=== PATIENT | male | born 1985 | race Two or more races ===

== ENCOUNTER 2023-05-05 13:56 | Emergency (ER) | payer MEDICAID, OTHER ==
[~2023-05-05] VITALS: Ht 193 cm; Wt 154.7 kg
[~2023-05-05 13:56] MED LIST: IBUP-1456 PO; METH-1182 PO
[2023-05-05 14:30] LABS: Basophils # (auto) 0 10 ^3/uL (0-0.2); Basophils % (auto) 0.4 % (0.0-2.0); Eosinophils # (auto) 0.1 10 ^3/uL (0-0.8); Eosinophils % (auto) 1.2 % (0.0-7.0); Hematocrit 50.1 % (41.0-53.0); Hemoglobin 17.1 g/dL (13.5-17.5); Lymphocytes # (auto) 1.8 10 ^3/uL (0.4-5.4); Lymphocytes % (auto) 25.8 % (10.0-50.0); Mean Corpuscular Hemoglobin 30.3 pg (28.0-32.0); Mean Corpuscular Volume 89.2 fL (80.0-100.0); Monocytes # (auto) 0.5 10 ^3/uL (0-1.3); Monocytes % (auto) 7.5 % (0.0-12.0); Neutrophils # (auto) 4.5 10 ^3/uL (1.6-8.6); Neutrophils % (auto) 65.1 % (37.0-80.0); Nucleated Red Blood Cells % 0.2 %; Red Blood Cells 5.62 10^6/uL (4.5-5.90); Red Cell Distribution Width 13.8 % (11.8-14.3); White Blood Cell 6.9 10^3/uL (4.4-10.8)
[2023-05-05 14:45] LABS: Alanine Aminotransferase 80 U/L (7-40); Albumin 4.8 g/dL (3.2-4.8); Alkaline Phosphatase 78 U/L (46-116); Anion Gap 8 (5-15); Aspartate Aminotransferase 56 U/L (13-40); BUN/Creatinine Ratio 15.8 (10.0-20.0); Bilirubin, Total 2.5 mg/dL (0.2-1.0); Blood Urea Nitrogen 12 mg/dL (9-23); Calcium 9.5 mg/dL (8.7-10.4); Carbon Dioxide 27 mmol/L (20-30); Chloride 103 mmol/L (98-107); Glucose 276 mg/dL (74-106); Lipase 44 U/L (12-53); Sodium 138 mmol/L (136-145); Total Protein 7.6 g/dL (5.7-8.2)
[2023-05-05 16:49] LABS: Urine Bacteria FEW /hpf (None Seen); Urine Blood Negative /uL (Negative); Urine Clarity Clear (Clear); Urine Color Yellow (Yellow); Urine Mucus FEW (None Seen); Urine Protein, UAD 1+ (Negative); Urine Specific Gravity 1.048 (1.001-1.035); Urine Sperm PRESENT /hpf (None Seen); Urine WBC 2 /hpf (0 - 3); Urine pH 5.5 (5.0-8.0)
[2023-05-05] MEDS ORDERED: PANT40TA2 PO (17:28)
[2023-05-05] MEDS ORDERED: ZOFR4T PO (17:28)
[2023-05-05] MEDS: LORazepam 0.5 MG TAB PO ONE (17:53)
[2023-05-05 17:59] VITALS: BP 122/78; PULSE 87; RESP 18; TEMP 98.6; O2SAT 95
== END 2023-05-05 18:00 | disposition home or self-care (01) ==
LOC: ER 13:56
DX: R74.8 Abnormal levels of other serum enzymes (principal); E80.6 Other disorders of bilirubin metabolism; Z90.49 Acquired absence of other specified parts of digestive tract
CPT/HCPCS: 36415; 74176; 80053; 81001; 83690; 85025

== ENCOUNTER 2023-06-09 08:16 | Emergency (ER) | payer MEDICAID, OTHER ==
[~2023-06-09] VITALS: Ht 193 cm; Wt 148.8 kg
[~2023-06-09 08:16] MED LIST changes: +PANT40TA2 PO; +ZOFR4T PO
[2023-06-09 08:35] VITALS: BP 135/60; PULSE 65; RESP 18; TEMP 97.9; O2SAT 99
[2023-06-09] MEDS ORDERED: CYCL-837 PO (09:05)
[2023-06-09] MEDS ORDERED: IBUP-1456 PO (09:05)
[2023-06-09] MEDS: HYDROcodone-ACET 5/325MG TAB PO ONE (09:10)
== END 2023-06-09 09:35 | disposition home or self-care (01) ==
LOC: ER 08:16
DX: S29.012A Strain of muscle and tendon of back wall of thorax, initial encounter (principal); R51.9 Headache, unspecified; M54.2 Cervicalgia; Z90.49 Acquired absence of other specified parts of digestive tract; V43.52XA Car driver injured in collision with other type car in traffic accident, initial encounter; Y93.89 Activity, other specified; Y92.488 Other paved roadways as the place of occurrence of the external cause; Y99.8 Other external cause status

== ENCOUNTER 2023-07-28 22:14 | Emergency (ER) | payer MEDICAID, OTHER ==
[~2023-07-28] VITALS: Ht 193 cm; Wt 142.7 kg
[~2023-07-28 22:14] MED LIST changes: +CYCL-837 PO
[2023-07-28 22:34] VITALS: BP 135/77; PULSE 86; RESP 20; O2SAT 95
[2023-07-28 22:59] LABS: Urine Bacteria None Seen /hpf (None Seen); Urine WBC None Seen /hpf (0 - 3)
[2023-07-28 23:09] LABS: Urine Blood Negative /uL (Negative); Urine Clarity Clear (Clear); Urine Protein, UAD Negative (Negative); Urine Specific Gravity 1.033 (1.001-1.035); Urine Urobilinogen Normal (Negative)
[2023-07-28 23:36] LABS: Urine Color STRAW (Yellow)
== END 2023-07-29 01:37 | disposition left against medical advice (07) ==
LOC: ER 22:14
DX: R73.9 Hyperglycemia, unspecified (principal); F41.9 Anxiety disorder, unspecified; Z90.49 Acquired absence of other specified parts of digestive tract; Z79.899 Other long term (current) drug therapy
CPT/HCPCS: 81001; 82962